=== PATIENT | female | born 1960 | race Caucasian/White ===

== ENCOUNTER 2017-11-21 06:38 | Day surgery (SDC) | payer OTHER, MEDICARE, MEDICAID ==
[~2017-11-21] VITALS: Ht 142.2 cm; Wt 56.8 kg
[~2017-11-21 06:38] MED LIST: CAL/MAG/ZINC PO; DIPH50 PO; DIVA-76 PO; DIVA-78 PO; DOCU250C90 PO; FOLI1 PO; LEVO25TA9 PO; MELA5TAB3 PO; MINE454C11 TP; MULT1TAB64 PO; [UNRECOGNIZED DRUG - CODE] PO
[2017-11-21] MEDS ORDERED: MIDAZOLAM HCL 2 MG/2 ML VIAL IVP ONE (06:39)
[2017-11-21] MEDS ORDERED: RINGERS SOLUTION,LACTATED 1,000 ML IV ONE ×2 (06:54→07:00)
[2017-11-21] MEDS ORDERED: AMPICILLIN SODIUM 1 GM/VIAL ONE (08:23)
[2017-11-21] MEDS ORDERED: KETAMINE HCL 50 MG/ML 10 ML VIAL ONE (14:44)
== END 2017-11-21 12:40 | disposition home or self-care (01) ==
LOC: SURGERY 06:38
PROVIDERS: ATTEND Dentist General Practice
DX: K05.30 Chronic periodontitis, unspecified (principal); E03.9 Hypothyroidism, unspecified; F41.8 Other specified anxiety disorders; G40.802 Other epilepsy, not intractable, without status epilepticus; F73 Profound intellectual disabilities; K59.09 Other constipation; Z79.899 Other long term (current) drug therapy
CPT/HCPCS: 41899; J0290; J3490; J7120; J2250

== ENCOUNTER 2019-04-02 07:20 | Day surgery (SDC) | payer OTHER, MEDICARE, MEDICAID ==
[~2019-04-02] VITALS: Ht 142.2 cm; Wt 55.0 kg
[~2019-04-02 07:20] MED LIST changes: +RINGERS SOLUTION,LACTATED 1,000 ML IV ONE
[2019-04-02] MEDS ORDERED: AMPICILLIN SODIUM 1 GM/VIAL ONE ×2 (07:26→07:27)
[2019-04-02] MEDS ORDERED: SODIUM CHLORIDE 0.9% 100 ML ONE (07:27)
[2019-04-02 07:56] LABS: BASOPHILS % (AUTO) 0.6 % (0.0-2.0); EOSINOPHILS % (AUTO) 2.4 % (1.0-6.0); HEMATOCRIT 37.5 % (36-46); HEMOGLOBIN 12.9 g/dL (12.0-16.0); LYMPHOCYTES # (AUTO) 1.8 K/uL (1.0-4.8); LYMPHOCYTES % (AUTO) 59.9 % (22.0-44.0); MEAN CORPUSCULAR HEMOGLOBIN 32.1 pg (26.0-34.0); MEAN CORPUSCULAR HGB CONC 34.3 G/dL (31.0-37.0); MEAN CORPUSCULAR VOLUME 93 fL (80-100); MONOCYTES # (AUTO) 0.2 K/uL (0.1-1.0); MONOCYTES % (AUTO) 7.6 % (2.0-9.0); NEUTROPHILS # (AUTO) 0.9 K/uL (1.8-7.7); NEUTROPHILS % (AUTO) 29.5 % (40.0-70.0); PLATELET COUNT (AUTO) 117 K/uL (150-450); RED BLOOD CELL COUNT(AUTO) 4.02 MIL/uL (4.00-5.20); RED CELL DISTRIBUTION WIDTH 13.1 % (11.5-14.5)
[2019-04-02 08:05] LABS: ANION GAP 3 mmol/L (8-16); CALCIUM, TOTAL 8.8 mg/dL (8.8-10.5); CARBON DIOXIDE 34 mmol/L (22-29); CHLORIDE 105 mmol/L (98-107); CREATININE 0.63 mg/dL (0.60-1.30); GLOMERULAR FILTR. RATE CALC > 60 mL/min (>60); GLUCOSE,RANDOM 84 mg/dL (70-110); POTASSIUM 4.2 mmol/L (3.5-5.1); SODIUM SERUM 142 mmol/L (136-145); UREA NITROGEN, BLOOD 14 mg/dL (7-18)
[2019-04-02 08:07] LABS: PROTHROMBIN TIME 10.5 SEC (9.4-11.6)
[2019-04-02 08:11] LABS: ALANINE AMINOTRANSFERASE 17 U/L (12-78); ALBUMIN 3.6 g/dL (3.4-5.0); ALKALINE PHOSPHATASE 64 U/L (46-116); ASPARTATE AMINOTRANSFERASE 16 U/L (15-37); BILIRUBIN,TOTAL 0.3 mg/dL (0.1-1.0); TOTAL PROTEIN, SERUM 7.4 g/dL (6.4-8.2)
[2019-04-02] MEDS ORDERED: ROCURONIUM BROMIDE 10 MG/ML 5 ML VIAL ONE (08:29)
[2019-04-02] MEDS ORDERED: FentaNYL CITRATE-PF 100 MCG/2 ML VIAL IVP PRN (11:15)
[2019-04-02] MEDS ORDERED: MEPERIDINE-PF 25 MG/ML VIAL IVP PRN (11:15)
[2019-04-02] MEDS ORDERED: HYDROmorphone 2 MG/ML SYRINGE IVP PRN (11:15)
[2019-04-02] MEDS ORDERED: MIDAZOLAM HCL 2 MG/2 ML VIAL IVP ONE (12:00)
[2019-04-02] MEDS ORDERED: 0.9% SODIUM CHLORIDE 10 ML VIAL IVP ONE (12:00)
[2019-04-02] MEDS ORDERED: PROPOFOL 1% 20 ML VIAL IVP ONE (12:00)
[2019-04-02] MEDS ORDERED: EPHEDrine SULFATE 50 MG/ML VIAL IM ONE (12:00)
[2019-04-02] MEDS ORDERED: DEXAMETHASONE SOD PHOS 4 MG/ML VIAL IVP ONE (12:00)
[2019-04-02] MEDS ORDERED: FentaNYL CITRATE-PF 100 MCG/2 ML VIAL IVP ONE (12:00)
[2019-04-02] MEDS ORDERED: LIDOCAINE/PF 2% 5 ML VIAL INJ ONE (12:00)
[2019-04-02] MEDS ORDERED: OXYGEN THERAPY IH SCH (20:00)
== END 2019-04-02 14:20 | disposition short-term general hospital (02) ==
LOC: SURGERY 07:20
PROVIDERS: ATTEND Dentist General Practice
DX: K02.9 Dental caries, unspecified (principal); K05.30 Chronic periodontitis, unspecified; E03.9 Hypothyroidism, unspecified; G40.909 Epilepsy, unspecified, not intractable, without status epilepticus; F41.9 Anxiety disorder, unspecified; Z79.01 Long term (current) use of anticoagulants; Z79.899 Other long term (current) drug therapy
CPT/HCPCS: 36415; 41899; 71045; 80053; 85025; 85610; 85730; 93005; J0290; J1100; J2250; J2704; J3010; J3490 ×3; J7050; J7120

== ENCOUNTER 2020-12-15 05:26 | Day surgery (SDC) | payer OTHER, MEDICARE, MEDICAID ==
[~2020-12-15] VITALS: Ht 142.2 cm; Wt 55.0 kg
[~2020-12-15 05:26] MED LIST changes: +DIVA-111 PO; +DIVA-112 PO; -DIVA-76 PO; -DIVA-78 PO; +DOCU-378 PO; -DOCU250C90 PO; +FOLI-130 PO; -FOLI1 PO; -MELA5TAB3 PO; +MELA5TAB40 PO; +MULT-663 PO; -MULT1TAB64 PO; -RINGERS SOLUTION,LACTATED 1,000 ML IV ONE
[2020-12-15] MEDS ORDERED: FentaNYL CITRATE PF 100 MCG/2 ML VIAL IVP ONE (05:27)
[2020-12-15] MEDS ORDERED: PROPOFOL 1% 20 ML VIAL IVP ONE (05:27)
[2020-12-15] MEDS ORDERED: ROCURONIUM BROMIDE 10 MG/ML 5 ML VIAL IVP ONE (05:27)
[2020-12-15] MEDS ORDERED: ONDANSETRON HCL 4 MG/2 ML VIAL IVP ONE (05:27)
[2020-12-15] MEDS ORDERED: MIDAZOLAM HCL 2 MG/2 ML VIAL IVP ONE (05:27)
[2020-12-15] MEDS ORDERED: NEOSTIGMINE METHYLSULFATE 1 MG/ML 10 ML VIAL IVP ONE (05:27)
[2020-12-15] MEDS ORDERED: SUGAMMADEX SODIUM 200 MG/2 ML VIAL IVP ONE ×2 (05:27→09:32)
[2020-12-15] MEDS ORDERED: LIDOCAINE/PF 2% 5 ML VIAL IM ONE (05:27)
[2020-12-15] MEDS ORDERED: GLYCOPYRROLATE 0.2 MG/ML VIAL IM ONE (05:27)
[2020-12-15] MEDS ORDERED: DEXAMETHASONE SOD PHOS 4 MG/ML VIAL IVP ONE (05:27)
[2020-12-15] MEDS ORDERED: RINGERS SOLUTION,LACTATED 1,000 ML IV ONE ×2 (05:28→06:30)
[2020-12-15 06:29] LABS: BASOPHILS % (AUTO) 0.5 % (0.0-2.0); EOSINOPHILS % (AUTO) 2.8 % (1.0-6.0); HEMATOCRIT 35.5 % (36-46); LYMPHOCYTES # (AUTO) 2.2 K/uL (1.0-4.8); LYMPHOCYTES % (AUTO) 49.2 % (22.0-44.0); MEAN CORPUSCULAR HEMOGLOBIN 31.8 pg (26.0-34.0); MEAN CORPUSCULAR HGB CONC 33.7 G/dL (31.0-37.0); MEAN CORPUSCULAR VOLUME 94 fL (80-100); MONOCYTES # (AUTO) 0.4 K/uL (0.1-1.0); MONOCYTES % (AUTO) 8.5 % (2.0-9.0); NEUTROPHILS # (AUTO) 1.8 K/uL (1.8-7.7); PLATELET COUNT (AUTO) 151 K/uL (150-450); RED BLOOD CELL COUNT(AUTO) 3.76 MIL/uL (4.00-5.20); RED CELL DISTRIBUTION WIDTH 13.6 % (11.5-14.5)
[2020-12-15 06:42] LABS: ANION GAP 3 mmol/L (8-16); CALCIUM, TOTAL 8.4 mg/dL (8.8-10.5); CARBON DIOXIDE 31 mmol/L (22-29); CHLORIDE 106 mmol/L (98-107); GLOMERULAR FILTR. RATE CALC > 60 mL/min (>60); GLUCOSE,RANDOM 87 mg/dL (70-110); POTASSIUM 4.3 mmol/L (3.5-5.1); PROTHROMBIN TIME 10.9 SEC (9.4-11.6); SODIUM SERUM 140 mmol/L (136-145); UREA NITROGEN, BLOOD 23 mg/dL (7-18)
[2020-12-15 06:47] LABS: ALANINE AMINOTRANSFERASE 20 U/L (12-78); ALBUMIN 3.2 g/dL (3.4-5.0); ALKALINE PHOSPHATASE 88 U/L (46-116); ASPARTATE AMINOTRANSFERASE 19 U/L (15-37); BILIRUBIN,TOTAL 0.2 mg/dL (0.1-1.0); TOTAL PROTEIN, SERUM 7.2 g/dL (6.4-8.2)
[2020-12-15 06:56] LABS: COVID AG,FIA SOURCE NASOPHARYNGEAL
[2020-12-15] MEDS ORDERED: AMPICILLIN SODIUM 2 GM/NS 100 ML IV ONE (07:30)
== END 2020-12-15 10:35 | disposition home or self-care (01) ==
LOC: SURGERY 05:26
PROVIDERS: ATTEND Dentist General Practice
DX: K02.9 Dental caries, unspecified (principal); K05.30 Chronic periodontitis, unspecified; K03.6 Deposits [accretions] on teeth; Z79.01 Long term (current) use of anticoagulants; Z79.899 Other long term (current) drug therapy; G40.909 Epilepsy, unspecified, not intractable, without status epilepticus; E03.9 Hypothyroidism, unspecified; F41.9 Anxiety disorder, unspecified; K59.00 Constipation, unspecified; R62.50 Unspecified lack of expected normal physiological development in childhood; Z98.890 Other specified postprocedural states
CPT/HCPCS: 41899; 71045; 80053; 85025; 85610; 85730; 87426; 93005; A9575; C9803; J0290; J1100; J2250; J2405; J2704; J3010; J3490 ×3; J7120; Q9967; 36415-L1; 36415-TC